=== PATIENT | male | born 1965 | race Caucasian/White ===

== ENCOUNTER 2022-09-01 12:30 | Outpatient (CLI) | payer OTHER, SELFPAY ==
--- NOTE | 2022-09-01 13:00 | CRLHL7_ITS ---
For Patients: As a result of the Century Cures Act, medical imaging exams and procedure reports are released immediately into your electronic medical record. You may view this report before your referring provider. If you have questions, please contact your health care provider. INDICATION: Follow-up DVT COMPARISON: 12/20/2021 TECHNIQUE: A compression venous ultrasound exam was performed of the left lower extremity using triana-scale imaging, color Doppler and spectral Doppler analysis. FINDINGS: There has been mild improvement in the extensive DVT within the left lower extremity, however, there remains extensive thrombus within the deep femoral and femoral veins within the left thigh. The popliteal and posterior tibial veins are compressible. Partial compressibility of the proximal greater saphenous vein and common femoral vein noted. However, there is lack of augmentation within the left calf. Normal appearance of the right common femoral vein. IMPRESSION: Mild improvement in the extensive DVT within the left lower extremity. However, extensive noncompressible and partially compressible clot remains. Dictated by Matt Lewis MD @ 09/01/2022 2:50:55 PM (Electronically Signed)
== END 2022-09-01 12:31 | disposition home or self-care (01) ==
LOC: US 12:31
PROVIDERS: PCP Family Medicine; Visit Provider Internal Medicine Hematology & Oncology
DX: I82.402 Acute embolism and thrombosis of unspecified deep veins of left lower extremity (principal)
CPT/HCPCS: 93971

== ENCOUNTER 2022-09-03 12:45 | Outpatient (RCR) | payer OTHER, SELFPAY ==
[2022-09-03 13:47] LABS: D Dimer Quantitative* 0.32 ug/ml (0.00-0.50)
== END 2022-11-30 23:59 | disposition home or self-care (01) ==
LOC: CCIC 12:45
PROVIDERS: PCP Family Medicine; Visit Provider Internal Medicine Hematology & Oncology
DX: I82.402 Acute embolism and thrombosis of unspecified deep veins of left lower extremity (principal); Z79.01 Long term (current) use of anticoagulants
CPT/HCPCS: 36415; 85379; 87635; 99202; 99204; 99205; 99212; 99213; 99214

== ENCOUNTER 2023-02-23 13:38 | Outpatient (CLI) | payer OTHER, SELFPAY ==
--- NOTE | 2023-02-23 14:00 | CRLHL7_ITS ---
For Patients: As a result of the Century Cures Act, medical imaging exams and procedure reports are released immediately into your electronic medical record. You may view this report before your referring provider. If you have questions, please contact your health care provider. INDICATION: FOLLOW UP CHRONIC LT LE THROMBUS. PT ON Eliquis COMPARISON: 09/01/2022 TECHNIQUE: A compression venous ultrasound exam was performed of the left lower extremity using triana-scale imaging, color Doppler and spectral Doppler analysis. FINDINGS: Extensive noncompressible hypoechoic clot is present throughout the left common femoral vein, femoral vein, proximal deep femoral vein and visualized greater saphenous vein. Clot extends to the mid femoral vein. The distal femoral vein and popliteal vein are patent. The right common femoral vein is also patent. Color blood flow within the left peroneal veins. IMPRESSION: Extensive DVT within the left lower extremity is mostly similar although there is some decreased clot within the distal femoral vein compared to the prior study. Dictated by Matt Lewis MD @ 02/23/2023 3:56:42 PM (Electronically Signed)
== END 2023-02-23 13:39 | disposition home or self-care (01) ==
LOC: US 13:40
PROVIDERS: PCP Family Medicine; Visit Provider Internal Medicine Hematology & Oncology
DX: I82.402 Acute embolism and thrombosis of unspecified deep veins of left lower extremity (principal)
CPT/HCPCS: 93971

== ENCOUNTER 2023-03-03 13:52 | Outpatient (RCR) | payer OTHER, SELFPAY ==
[2023-03-03 16:07] LABS: D Dimer Quantitative* < 0.27 ug/ml (0.00-0.50)
== END 2023-08-30 23:59 | disposition home or self-care (01) ==
LOC: CCIC 13:52
PROVIDERS: PCP Family Medicine; Visit Provider Internal Medicine Hematology & Oncology
DX: I82.402 Acute embolism and thrombosis of unspecified deep veins of left lower extremity (principal); Z79.01 Long term (current) use of anticoagulants
CPT/HCPCS: 36415; 85379; 99212; 99213; 99214

== ENCOUNTER 2025-01-08 02:01 | Emergency (ER) | payer OTHER, SELFPAY ==
[2025-01-08 02:04] VITALS: BP 120/77; PULSE 67; RESP 16; TEMP 36.4; O2SAT 97; BMI 26.6
--- OUTSIDE RECORDS SUMMARY | 2025-01-08 02:04 | XMS_ITS | Clinical Summary ---
Author Organization [facility] Address [address] [place] [id number] Care Team Providers Care Patient Safety Manager Name Role Phone Dominguez Reyes MD Primary Care Provider [phone] Neema Lopes INSTALLATION AND REPAIR TECHNICIAN Unavailable [phone] Allergies Active Allergy Reactions Criticality Noted Date Comments Pollen Extracts Other - Describe In Comment Field 08/07/2021 Runny nose, water eyes, coughing Medications naproxen (ALEVE) 220 mg tabletIndication s:Myalgia Take 2 tablets by mouth every 12 hours if needed (myalgias). 100 tablet 07/03/20 20 Active sildenafil citrate (VIAGRA) 50 mg tabletIndication s:ED (erectile dysfunction) of non-organic origin Take 1 tablet by mouth once daily if needed for Erectile Dysfunction. Take 30min to 4 hours before sexual activity. Max 100mg/24hr 30 tablet. 3 08/25/20 20 Active albuterol 2.5 mg/0.5 mL CONCENTRATED NEB solutionIndicati ons:Moderate persistent asthma without complication (HC) Inhale 0.5 mL (2.5 mg) via a nebulizer every 6 hours if needed for Shortness Of Breath. 15 mL 5 05/16/20 22 Active albuterol HFA (PRO-AIR; VENTOLIN; PROVENTIL) 90 mcg/actuation inhalerIndicatio ns:Moderate persistent asthma without complication (HC) Inhale 2 Puffs by mouth every 6 hours if needed for Shortness of Breath 1st choice or Wheezing 2nd choice. 1 Each 5 05/16/20 22 Active benzonatate (TESSALON) 200 mg capsuleIndicatio ns:Cough, unspecified type TAKE ONE CAPSULE BY MOUTH THREE TIMES DAILY NEEDED FOR COUGH 30 Capsule 3 12/29/19 24 Active olopatadine (PATANOL) 0.1 % ophthalmic solutionIndicati ons:Seasonal allergies Place 1 Drop into both eyes two times daily. 20 mL 2 01/27/20 24 Active finasteride (PROPECIA) 1 mg tablet Take 1 mg by mouth once daily in the morning. 11/04/19 24 Active CPAPIndications: Severe obstructive sleep apnea,Non-restor ative sleep,Excessive daytime sleepiness CPAP (E0601) machine for home use at pressure: 7-18 , Choice of mask (A7030 or A7034) w/full face cushion (A7031) x1/mo, nasal cushion (A7032) x2/mo, or nasal pillows (A7033) x 2/mo; Length of Need: 99 months; Frequency of use: Daily 1 Each 11 05/26/20 24 Active prazosin (MINIPRESS) 2 mg capsuleIndicatio ns:PTSD (post-traumatic stress disorder) Take 2 Capsules (4 mg) by mouth at bedtime. 90 Capsule 3 10/28/19 25 Active daridorexant (Quviviq) 25 mg tab Take by mouth. Takes 25 mg at bedtime. PRESCRIBED BY [facility] 12/14/19 25 Active fluvoxaMINE 25 mg tabletIndication s:Social anxiety disorder,Obsessi ve-compulsive disorder, unspecified type May take 12.5-37.5 mg daily. 45 Tablet 1 12/14/19 25 Active LORazepam (Ativan) 0.5 mg tabIndications:S ocial anxiety disorder Take 0.5-1 Tablets (0.25-0.5 mg) by mouth once daily if needed for Anxiety. For social functions. Do not consume alcohol when using. 5 Tablet 12/14/19 25 Active atomoxetine 10 mg capsuleIndicatio ns:Attention deficit hyperactivity disorder (ADHD), predominantly inattentive type TAKE 1 CAPSULE BY MOUTH ONCE DAILY. 30 Capsule 12/27/19 25 Active ARIPiprazole (Abilify) 2 mg tabletIndication s:Major depressive disorder, recurrent episode, in partial remission with seasonal pattern Take 0.5-1 Tablets (1-2 mg) by mouth once daily. Patient needs range dose. 90 Tablet 08/09/20 24 2024 Discontinued(* Patient states no longer taking) LORazepam (Ativan) 0.5 mg tabIndications:S ocial anxiety disorder Take 0.5-1 Tablets (0.25-0.5 mg) by mouth once daily if needed for Anxiety. For social functions. Do not consume alcohol when using. 5 Tablet 10/04/19 25 2024 Discontinued(R eorder (E-cancel not sent)) eszopiclone (LUNESTA) 3 mg tabletIndication s:Insomnia, unspecified type Take 0.5 Tablets (1.5 mg) by mouth at bedtime. 30 Tablet 2 10/28/19 25 2024 Discontinued(* Med complete/Regim en complete/Level of care change) atomoxetine (STRATTERA) 10 mg capsuleIndicatio ns:Attention deficit hyperactivity disorder (ADHD), predominantly inattentive type Take 1 Capsule (10 mg) by mouth once daily. 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 This is clinically relevant per radiology in that it makes it difficult to do an angiogram from the leg. Small bowel obstruction 12/29/2021 DVT of deep femoral vein, left 12/13/2021 H/O small bowel obstruction 05/09/2021 Overview (05/09/2021): Hospitalized overnight, managed conservatively History of small bowel obstruction 07/03/2020 Overview (07/03/2020): Hospitalized at [facility], unknown etiology OCD (obsessive compulsive disorder) 07/03/2020 Generalized anxiety disorder 07/03/2020 Moderate persistent asthma without complication 01/09/2020 Seasonal affective disorder Encounters Date Type Department Care Team Description 01/05/2025 10:45 AM CDT Nurse/Clinic Staff Only [facility] [address] [place] [address] Immunization/Injec tion (ALLERGY INJECTION ) 01/05/2025 Travel 12/28/2024 4:00 PM CDT Ancillary Procedure [facility] [address] [place] [address] 12/28/2024 2:25 PM CDT Office Visit [facility] [address] [place] [address] Dominguez Reyes MD Back Pain (lower back pain on both left and right just a bad pain patient states chronic for 3-4 months.); Eye Problem (has extra skin on eye lids hoping for removal refferal); Immunization/Injec tion 12/28/2024 Travel 12/25/[address] [facility] at [address] [place] [address] Jenny Mcgill NP Refill Request (Atomoxetine) 12/21/[address] [facility] [place] [address] Jenny Mcgill NP Refill Request (Atomoxetine 25mg) 12/13/2024 2:30 PM CDT Telemedicine [address] [place] [address] Jenny Mcgill NP Telehealth ([place]) 12/13/2024 11:15 AM CDT Telemedicine [facility] [address] [facility] [address] [place] [address] Vel Rodriguez, Eric, LP Mental Health Intake; Telehealth; Sleep Problem 12/13/2024 Travel 12/08/2024 12:45 PM CDT Nurse/Clinic Staff Only [facility] [address] [place] [address] Immunization/Injec tion (ALLERGY INJECTION ) 12/08/2024 Travel 11/28/[address] [facility] [address] [place] [address] Jenny Mcgill, INSTALLATION AND REPAIR TECHNICIAN Medication Management (Atomoxetine 10 mg) 11/21/2024 Refill [facility] at [address] [place] [phone] Jenny Mcgill, INSTALLATION AND REPAIR TECHNICIAN Refill Request (Atomoxetine 25MG) 11/10/2024 10:15 AM METAL BASE BLOCKER Nurse/Clinic Staff Only [facility] [address] [place] [address] Immunization/Injec tion (Allergy shot/) 11/10/2024 Travel 10/28/2024 11:15 AM METAL BASE BLOCKER Telemedicine [facility] [address] [place] [address] [address] [place] [address] Neema Lopes, MAIKEL Telehealth 10/28/2024 Travel 10/13/2024 10:15 AM METAL BASE BLOCKER Nurse/Clinic Staff Only [facility] [address] [place] [address] Immunization/Injec tion (ALLERGY INJECTION ) 10/13/2024 Travel from Last 3 Months Immunizations Immunization Administration Dates Next Due Anthrax Vaccine 08/25/2010 COVID-19 VACCINE SPIKEVAX (M ODERNA 50MCG/0.5ML) 12YO+ PFS 06/29/2023 COVID-19 vaccine ([employer]i [employer]-Bio NTech 30mcg/0.3mL) PF, MDV 07/22/2021,12/29/2020,12/08/2020 Hepatitis A (Adult) 06/18/2003,02/12/1999 Hepatitis B (Adult) 09/24/2010, 3,01/29/2003,2000 INFLUENZA, IIV3 PF (AGE >= 6 MO) 07/02/2024 Influenza Virus, Unspecified 07/03/2017,05/30/20 15 Influenza, IIV4 06/08/2023,05/16/2022,07/03/2017 Influenza, IIV4 (=>6mos) MDV 06/26/2020, 11/05/2019,07/05/2018,2015,05/09/2016 Oral Polio Vaccine 05/05/1989,02/26/1989 Pneumococcal Conj 20-valent (Prevnar 20) 07/22/2024 Smallpox (Vaccinia) Live [id number] 11/06/2002 Td (Age >=7 Years) 12/06/2021,01/29/2003, 001 Tdap 09/24/2010 Typhoid (injectable) 12/14/2015,09/24/2010 Typhoid Parenteral,Killed 12/14/2015,05/05/1989, 03/13/1989 Zoster (Shingrix-RZV, recombinant) 12/28/2024, Family History Medical History Relation Name Comments Asthma Brother Seasonal affective disorder Brother Asthma Father Good Health Mother Relation Name Status Comments Brother Alive Father Alive Mother Alive Social History Tobacco Use Types Packs/Day Years Used Date Smoking Tobacco: Never Smokeless Tobacco: Never Tobacco Cessation:Counseling Given: Yes Alcohol Use Standard Drinks/Week Comments Yes 2 (1 standard drink = 0.6 oz pur e alcohol) PHQ-2 Answer Date Recorded PHQ-2 TOTAL SCORE 2 12/13/2024 Social Connections Answer Date Recorded Do you often feel lonely or isolated from those around you? 0 12/28/2024 Alcohol Use Answer Date Recorded How often do you have a drink containing alcohol ? 2 10/16/2023 How many drinks containing a lcohol do you have on a typical day when you are drinking? 0 10/16/2023 How often do you have five or more drinks on one occasion? 0 10/16/2023 Financial Resource Strain Answer Date R ecorded Difficulty of Paying Living Expenses 3 12/28/2024 Difficulty of Paying Living Expenses Not on file 12/28/2024 Food Insecurity Answer Date Recorded Do you worry your food will run out before you are able to buy more? 1 12/28/2024 Transportation Needs Answer Date Record ed Does lack of transportation keep you from medica l appointments? 1 12/28/2024 Does lack of transportation keep you from work, meetings or getting things that you need? 1 12/28/2024 Housing Stability Answer Date Recorded What is your housing situation today? 1 12/28/2024 Utilities Answer Date Recorded Do you have trouble paying f or utilities (for example, heat, electricity, water, phone)? 1 12/28/2024 Sex and Gender Information Value Date Recorded Sex Assigned at Not on file Legal Sex Male 9:46 AM CDT Gender Identity Not on file Sexual Orientation Not on file Obstetrics History Last Filed Vital Signs Vital Sign Reading Time Taken Comments Blood Pressure 127/80 12/28/2024 2:25 PM CDT Pulse 55 12/28/2024 2:25 PM CDT Temperature 36.7 C (98 F) 07/22/2024 11:22 AM METAL BASE BLOCKER Respiratory Rate 14 05/27/2022 5:25 PM CDT Oxygen Saturation 98% 12/28/2024 2:25 PM CDT Inhaled Oxygen Concentration - - Weight 77.7 kg (171 lb 3.2 oz) 12/28/2024 2:25 P M CDT Height 170.2 cm (5' 7) 01/05/2024 8:20 AM CDT Body Mass Index 26.81 01/05/2024 8:20 AM CDT Plan of Treatment Upcoming Encounters Date Type Department Care Team (Latest Contact Info) Description 01/17/2025 11:00 AM CDT Appointment [facility] [address] [place] [address] Jarad Browne, PT [address] [place] [address] 01/30/2025 11:15 AM CDT Telemedicine [facility] [address] [address] Vel Rodriguez, Eric, LP [address] [address] 02/02/2025 10:45 AM CDT Nurse/Clinic Staff [place] [address] [place] [address] 02/07/2025 11:15 AM CDT Telemedicine [facility] [address] [address] Vel Rodriguez PsyD, LP [address] [facility] [address] [place] [address] 02/14/2025 11:15 AM CDT Telemedicine [facility] [address] [facility] [address] [place] [address] Vel Rodriguez PsyD, LP [address] [facility] [address] [place] [address] 02/21/2025 10:30 AM CDT Telemedicine [facility] [address] [place] [address] Vel Rodriguez PsyD, LP [address] [place] [address] 04/03/2025 9:00 AM CDT Office Visit [facility] [address] [place] [address] Jono Phan MD [address] [place] [address] Health Maintenance Due Date Last Done Comments HIV for age 15-65 02/01/1980 Hepatitis C screening for ag e 18-79 1983 BMI (ht and wt on same day) for age 18+ 01/04/2025 01/05/2024, 05/16/2022, 01/06/2022, Additional history exists Depression screening for age 12+ 12/13/2025 12/13/2024, 12/13/2024, 10/04/2024, Additional history exists Colonoscopy through age 75 01/09/2027 01/09/2017 Lipids for age 45-75 07/22/2029 07/22/2024, 07/13/2023, 05/16/2022 Tetanus booster 12/07/2031 12/06/2021, 09/14, 01/29/2003, Additional history exists Tdap Completed 09/24/2010 COVID-19 vaccine series Completed 07/02/20 24, 06/29/2023, 07/04/2022, Additional history exists Influenza Vaccine Completed 07/02/2024, , 05/16/2022, Additional history exists Pneumococcal series for age 50+ Completed 4 Zoster (shingles) series for age 50+ Completed 12/28/2024, 07/02/2024 Medical Devices Implanted Type Area Drink Mixer Device Identifier Shelf Expiration Date Model / Serial / Lot Mesh Ventral 1.7in Ventralex St W/Strap - [id number] Implanted:Qty: 1 on 02/24/2018 by Jose Solorzano MD at [facility] N/A: Abdomen [employer] 01/10/2020 [id number] / / [id number] Procedures Procedure Name Priority Date/Time Associated Diagnosis Comments XR SPINE LUMBAR 3 VIEWS Routine 12/28/2024 3:58 PM CDT Low back pain at multiple sites LIPID PANEL W REFLEX MEASURED LDL Routine 07/22/2024 12:33 PM METAL BASE BLOCKER Prediabetes COLONOSCOPY 01/09/2017 10:19 AM CDT from Last 3 Months or Most Recently Relevant to Health Maintenance Results * XR SPINE LUMBAR 3 VIEWS (12/28/2024 3:58 PM CDT) Anatomical Region Laterality Modality LUMBAR SPINE Computed Radiogr aphy 12/30/2024 1:54 PM CDT Impressions 12/30/2024 1:54 PM CDT No acute findings. Stable spondylolisthesis and disc space narrowing at L5-S1. Dictated by Faye Cardenas MD @ 12/30/2024 1:54:15 PM (Electronically Signed) Narrative 12/30/2024 1:54 PM CDT For Patients: As a result of the Century Cures Act, medical imaging exams and procedure reports are released immediately into your electronic medical record. You may view this report before your referring provider. If you have questions, please contact your health care provider. INDICATION: Low back pain at multiple sites TECHNIQUE: Lumbar spine 3 view. COMPARISON: CT abdomen pelvis 12/31/2021 FINDINGS: Bones: 5 lumbar-type vertebral bodies. Vertebral body heights are maintained. Grade 1 anterolisthesis of L5 on S1 measuring 7 mm, relatively unchanged compared to prior CT given differences in technique. No fractures or significant bone lesions. Joints: Disc space narrowing at L5-S1. Small anterior osteophytes predominantly L1-L3. Soft tissues: Unremarkable. Procedure Note Faye Cardenas MD - 12/30/2024 For Patients: As a result of the Cures Act, medical imagingexams and procedure reports are released immediately into your electronicmedical record. You may view this report before your referring provider.If you have questions, please contact your health care provider. INDICATION: Low back pain at multiple sites TECHNIQUE: Lumbar spine 3 view. COMPARISON: CT abdomen pelvis 12/31/2021 FINDINGS: Bones: 5 lumbar-type vertebral bodies. Vertebral body heights aremaintained. Grade 1 anterolisthesis of L5 on S1 measuring 7 mm, relativelyunchanged compared to prior CT given differences in technique. Nofractures or significant bone lesions. Joints: Disc space narrowing at L5-S1. Small anterior osteophytespredominantly L1-L3. Soft tissues: Unremarkable. IMPRESSION: No acute findings. Stable spondylolisthesis and disc space narrowing at L5-S1. Dictated by Faye Cardenas MD @ 12/30/2024 1:54:15 PM (Electronically Signed) us Dominguez Reyes MD GENERAL IMAGING Final Resu lt * (ABNORMAL) LIPID PANEL W REFLEX MEASURED LDL (07/22/2024 12:33 PM METAL BASE BLOCKER) CHOLESTEROL, TOTAL 211(H) <200 mg/dL [facility] HDL CHOLESTEROL 48 > OR = 40 mg/dL [facility] TRIGLYCERIDES 209(H) <150 mg/dL [facility] Comment: If a non-fasting specimen was collected, consider repeat triglyceride testing on a fasting specimen if clinically indicated. Luisa et al. J. of Clin. Lipidol. 2015;9:129-169. LDL-CHOLESTEROL 128(H) mg/dL (calc) [facility] Comment: Reference range: <100 Desirable range <100 mg/dL for primary prevention; <70 mg/dL for patients with CHD or diabetic patients with > or = 2 CHD risk factors. LDL-C is now calculated using the Zeb-Baron calculation, which is a validated novel method providing better accuracy than the Friedewald equation in the estimation of LDL-C. Zeb SS et al. АЛЕКСАНДР. 2013;310(19): 2111-5230 (http://education.Tissuetech/faq/SMD309) CHOL/HDLC RATIO 4.4 <5.0 (calc) [facility] NON HDL CHOLESTEROL 163(H) <130 mg/dL (calc) [facility] Comment: For patients with diabetes plus 1 major ASCVD risk factor, treating to a non-HDL-C goal of <100 mg/dL (LDL-C of <70 mg/dL) is considered a therapeutic option. Blood BLOOD SPECIMEN / Unknown 07/22/2024 12:33 PM METAL BASE BLOCKER 07/22/2024 12:34 PM METAL BASE BLOCKER Dominguez Reyes MD CHEMISTRY Final Resu lt Curves [facility] [address] [place] [address], Social [employer] [facility] [address] [place] [phone] * COLONOSCOPY (01/09/2017 10:19 AM CDT) 01/09/2017 10:1 9 AM CDT Narrative Transcriptions RashadJose whitfeild - 01/09/2017 11:23 AM CDT Patient Name: Baltazar Montaño Procedure Date: 01/09/2017 Gender: Male Date of : 1965 Admit Type: Ambulatory Procedure: Colonoscopy Proceduralist: Lynn Bauman (Nurse) Indications/Pre-Op Diagnosis: Screening for colorectal malignant neoplasm, This is the patient's first colonoscopy Medications: The level of sedation administered was moderate, Midazolam 6 mg IV, Fentanyl 125 micrograms IV Procedure Description: The patient had risks, benefits and alternatives explained to andgave informed consent. The patient had a stable cardiopulmonary status and judged an adequate candidate for conscious sedation. The colonoscope was passed through the anus and advanced to thececum, identified by appendiceal orifice and ileocecal valve. Thecolonoscopy was somewhat difficult due to significant looping. Successfulcompletion of the procedure was aided by increasing the dose of sedationmedication and applying abdominal pressure. The patient tolerated the procedure fairly well. The quality of the bowel preparation was excellent. Complications: No immediate complications. Estimated blood loss: Minimal. Estimated Blood Loss & Specimen: Estimated blood loss was minimal. Specimen collected - Yes and sent to Laboratory Findings: The perianal and digital rectal examinations were normal. A 1 mm polyp was found in the sigmoid colon. The polyp was sessile.The polyp was removed with a cold biopsy forceps. Resection and retrieval were complete. The exam was otherwise without abnormality. Impressions/Post-Op Diagnosis: - One 1 mm polyp in the sigmoid colon, removed with a cold biopsy forceps. Resected and retrieved. - The examination was otherwise normal. Recommendation: - Await pathology results. Moderate Sedation: Moderate (conscious) sedation was administered by the endoscopy nurse and supervised by the endoscopist. The following parameters were monitored: oxygen saturation, heart rate, blood pressure, andresponse to care. Jose Solorzano, 01/09/2017 11:22:49 AM This report has been signed electronically. Note Initiated On: 01/09/2017 10:19 AM Jose Solorzano MD PROCEDURE ORD Final Re sult from Last 3 Months or Most Recently Relevant to Health Maintenance Insurance [facility] Advance Directives * Full Code (Latest Code Status on File) Date Activated Date Inactivated Comments 12/28/2021 1:58 PM 12/29/2021 3:26 PM Question Answer Comments Code Status Discussion: Reviewed Preferences * Full Code Date Activated Date Inactivated Comments 02/24/2018 8:54 AM 02/24/2018 4:37 PM * Full Code Date Activated Date Inactivated Comments 01/09/2017 10:32 AM 01/10/2017 2:29 AM Care Teams Patient Safety Manager Relationship Specialty Start Date End Date Dominguez Reyes MD [address] [place] [address] PCP - General Family Practice 08/05/23 Neema Lopes NP [address] [place] [address] Sleep Medicine 05/20/24
--- OUTSIDE RECORDS SUMMARY | 2025-01-08 02:04 | XMS_ITS | Clinical Summary ---
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 Name Role Phone [facility] Unavailable Unava ilable Conditions or Problems Problem Name Problem Code Onset Date Status Entry Date Provider Comment Standard Description Annotate Insomnia 531525720 (SNOMED CT) 11/11 Active 11/17 Yuliya Thursday Insomnia PTSD 56519325 (SNOMED CT) 11/11 Active 11/17 Yuliya Thursday Posttraumatic stress disorder Depression with anxiety 164211187 (SNOMED CT) 11/11 Active 11/17 Yuliya Thursday Mixed anxiety and depressive disorder Obstructive sleep apnea, severe 34478035 (SNOMED CT) 11/11 Active 11/11 Yuliya Thursday Obstructive sleep apnea syndrome Small bowel obstruction 103028265 (SNOMED CT) 12/29 Active 11/09 Liza Rich Small bowel obstruction Imported from [facility]: [facility] [employer] [facility] ( at 11:29:32 AM) Seasonal affective disorder 055908044 (SNOMED CT) 01/08 Active 11/09 Liza Rich Seasonal affective disorder Imported from [facility]: [facility] [employer] [facility] ( at 11:29:32 AM) OCD (obsessive compulsive disorder) F42.9 (ICD-10-CM ) Active 11/09 Liza Rich Obsessive-comp ulsive disorder, unspecified Imported from [facility]: [facility] [employer] [facility] (26-Feb-202 5 at 11:29:32 AM) Moderate persistent asthma without complication J45.40 (ICD-10-CM ) 01/08 Active 11/09 Liza Rich Moderate persistent asthma, uncomplicated Imported from [facility]: [facility] Medication Review [facility] ( 5 at 11:29:32 AM) 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 Active 11/09 Liza Rich Other congenital malformations of great veins Imported from [facility]: [facility] Medication Review [facility] ( at 11:29:32 AM) History of small bowel obstruction Z87.19 (ICD-10-CM ) Active 11/09 Liza Rich Personal history of other diseases of the digestive system Imported from A: [facility] ( at 11:29:32 AM) H/O small bowel obstruction Z87.19 (ICD-10-CM ) 05/09 Active 11/09 Liza Rich Personal history of other diseases of the digestive system Imported from [facility]: [facility] Medication Review [facility] ( at 11:29:32 AM) Generalized anxiety disorder 02266580 (SNOMED CT) Active 11/09 Liza Rich Generalized anxiety disorder Imported from [facility]: [facility] ( at 11:29:32 AM) DVT of deep femoral vein, left I82.412 (ICD-10-CM ) 01/06 Active 11/09 Liza Rich Acute embolism and thrombosis of left femoral vein Imported from [facility]: [facility] Medication Review [facility] ( at 11:29:32 AM) Medications Medication Instructions Start Date Stop Date Generic Name ND Provider QUVIVIQ 25 MG TABS take 1 tab within 30 minutes of bed for insomnia daridorexant [id number] Yuliya Thursday SILDENAFIL CITRATE 50 MG TABS Take 1 tablet by mouth once daily if needed for Erectile Dysfunction. Take 30min to 4 hours before sexual activity. Max 100mg/24hr sildenafil [id number] QIEUSER QIEUSER PRAZOSIN HCL 2 MG CAPS Take 2 Capsules (4 mg) by mouth at bedtime. prazosin [id number] QIEUSER QIEUSER OLOPATADINE HCL 0.1 % SOLN Place 1 Drop into both eyes two times daily. olopatadine 23182146877 QIEUSER QIEUSER NAPROXEN SODIUM 220 MG TABS Take 2 tablets by mouth every 12 hours if needed (myalgias). naproxen sodium 25261216636 QIEUSER QIEUSER LORAZEPAM 0.5 MG TABS Take 0.5-1 Tablets (0.25-0.5 mg) by mouth once daily if needed for Anxiety. For social functions. Do not consume alcohol when using. lorazepam 59519486837 QIEUSER QIEUSER FINASTERIDE 1 MG TABS Take 1 mg by mouth once daily in the morning. finasteride 62071816678 QIEUSER QIEUSER ESZOPICLONE 3 MG TABS Take 0.5 Tablets (1.5 mg) by mouth at bedtime. eszopiclone 72474998078 QIEUSER QIEUSER CPAP CPAP (E0601) machine for home use at pressure: 7-18 , Choice of mask (A7030 or A7034) w/full face cushion (A7031) x1/mo, nasal cushion (A7032) x2/mo, or nasal pillows (A7033) x 2/mo; Length of Need: 99 months; Frequency of use: Daily CPAP QIEUSER QIEUSER BENZONATATE 200 MG CAPS TAKE ONE CAPSULE BY MOUTH THREE TIMES DAILY NEEDED FOR COUGH benzonatate 75737529896 QIEUSER QIEUSER ATOMOXETINE HCL 25 MG CAPS Take 1 Capsule (25 mg) by mouth once daily. atomoxetine 79054988655 QIEUSER QIEUSER ARIPIPRAZOLE 2 MG TABS Take 0.5-1 Tablets (1-2 mg) by mouth once daily. Patient needs range dose. aripiprazole 33821934336 QIEUSER QIEUSER ALBUTEROL SULFATE HFA 108 (90 Base) MCG/ACT AERS Inhale 2 Puffs by mouth every 6 hours if needed for Shortness of Breath 1st choice or Wheezing 2nd choice. albuterol sulfate 82703529296 QIEUSER QIEUSER ALBUTEROL SULFATE (5 MG/ML) 0.5% NEBU Inhale 0.5 mL (2.5 mg) via a nebulizer every 6 hours if needed for Shortness Of Breath. albuterol sulfate 31225604504 QIEUSER QIEUSER Medications Administered No information available. Allergies, Adverse Reactions, Alerts Allergy Name Reaction Description Start Date Severity Statu s Provider POLLEN EXTRACTS Other - Describe In Comment Field Mild Active Liza Dawsonmike Results Date Name Value Unit Range Flag Description Office Visit: Office Visit Zachary oconnell in [place] [facility] MEDS REVIEW Done Documenta tion of current medications (procedure) Plan of Care Type Date Detail Pending order Sleep DME - PAP order Pending order Sleep DME - PAP order Procedures Code Procedure Name Date Entry Date [facility]-[id number] Documentation of current medicatio ns Vital Signs No information available. Immunizations No information available. Advance Directives No information available.
--- OUTSIDE RECORDS SUMMARY | 2025-01-08 02:04 | XMS_ITS | Continuity of Care Document ---
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 It does not include entries that were removed or entered in error. Problem Status Onset Date Problem Type Date of Resolution Comments Source visit for: administrative purpose Inactive Condition [facility] assessment of patient condition work status Active Condition [facility] astigmatism Active Condition [facility] refractive error - hypermetropia Active Condition [facility] presbyopia Active Condition [facility] visit for: routine eye exam Inactive Condition [facility] cough Active Condition [facility] Patient Education Inactive Condition [facility] visit for: screening exam Inactive Condition [facility] visit: ears/hearing exam for hearing conservation, treatment Inactive Condition [facility] visit for: screening exam pulmonary tuberculosis Inactive Condition [facility] visit for: investigation / testing Inactive Condition [facility] vertigo Inactive Condition Do[facility] diarrhea Active Condition [facility] multiple environmental allergies Inactive Condition [facility] bronchitis Inactive Condition [facility] visit for: services physical Active Condition [facility] Medications Combined list of outpatient medications from Department of Defense and Veterans Affairs facilities.Medications provided include 1) outpatient medications from the last 15 months, and 2) patient-reported medications. Medication Details Route Status Patient Instructions Prescription Expires Prescription Number Last Dispense Date Ordering Provider Order Date Order Qty Source ARIPIPRAZOL E (aripiprazo le), 2 MG, TABLET, ORAL, XLCARE PHARMACE, 500 ea. BOTTLE Active [id number] 2023 45 Pharmac y Data Transac tion Service Facilit y BENZONATATE (benzonatat e), 200 MG, CAPSULE, ORAL, CAMBER PHARMACE, 100 ea. BOTTLE Active [id number] 4 2023 30 Pharmac y Data Transac tion Service Facilit y BENZONATATE (benzonatat e), 200 MG, CAPSULE, ORAL, CAMBER PHARMACE, 100 ea. BOTTLE Active [id number] 2023 21 Pharmac y Data Transac tion Service Facilit y CLOBETASOL PROPIONATE (clobetasol propionate) , 0.05 %, CREAM (G), TOPICAL, ENCUBE ETHICALS, 15 g TUBE Active [id number] 2023 60 Pharmac y Data Transac tion Service Facilit y DOXYCYCLINE MONOHYDRATE (DOXYCYCLIN E MONOHYDRATE ), 100 MG, CAPSULE, ORAL, LUPIN PHARMACEU, 50 ea. BOTTLE Active [id number] 2023 14 Pharmac y Data Transac tion Service Facilit y FLUVOXAMINE MALEATE (FLUVOXAMIN E MALEATE), 25 MG, TABLET, ORAL, ANI PHARMACEUTI , 100 ea. BOTTLE Active [id number] 2023 180 Pharmac y Data Transac tion Service Facilit y GABAPENTIN (GABAPENTIN ), 250 MG/5ML, SOLUTION, ORAL, ACELLA PHARMACE, 470 ml BOTTLE Active [id number] 2023 100 Pharmac y Data Transac tion Service Facilit y LORAZEPAM (lorazepam) , 0.5 MG, TABLET, ORAL, LEADING PHARMA, 100 ea. BOTTLE Cancele d [id number] : 2023 0 Pharmac y Data Transac tion Service Facilit y LORAZEPAM (lorazepam) , 0.5 MG, TABLET, ORAL, LEADING PHARMA, 100 ea. BOTTLE Cancele d [id number] : 2023 0 Pharmac y Data Transac tion Service Facilit y LORAZEPAM (lorazepam) , 0.5 MG, TABLET, ORAL, LEADING PHARMA, 100 ea. BOTTLE Active [id number] 2023 5 Pharmac y Data Transac tion Service Facilit y LORAZEPAM (lorazepam) , 0.5 MG, TABLET, ORAL, LEADING PHARMA, 100 ea. BOTTLE Active [id number] 2023 5 Pharmac y Data Transac tion Service Facilit y MODAFINIL (MODAFINIL) , 100 MG, TABLET, ORAL, APOTEX MANASA, 30 ea. BOTTLE Active [id number] 2023 135 Pharmac y Data Transac tion Service Facilit y MODAFINIL (MODAFINIL) , 100 MG, TABLET, ORAL, APOTEX MANASA, 30 ea. BOTTLE Active [id number] 2023 135 Pharmac y Data Transac tion Service Facilit y PANTOPRAZOL E SODIUM (PANTOPRAZO LE SODIUM), 20 MG, TABLET DR, ORAL, CAMBER PHARMACE, 90 ea. BOTTLE Active [id number] 2023 90 Pharmac y Data Transac tion Service Facilit y PANTOPRAZOL E SODIUM (PANTOPRAZO LE SODIUM), 20 MG, TABLET DR, ORAL, CAMB PHARMACE, 90 ea. BOTTLE Active [id number] 2023 90 Pharmac y Data Transac tion Service Facilit y Allergies, Adverse Reactions, Alerts Combined list of allergies from Department of Defense and Veterans Affairs facilities. It does not include entries that were removed or entered in error. Substance Category Reaction Severity Reaction type Status Date Reported Comments Source No Known Allergies Drug allergy (disorder) active 09/24/2010 Michelle Guzmanning [place] Immunizations Combined list of available immunizations from the Department of Defense and Veterans Affairs facilities. Immunization Series Date Given Administered By Site Reaction Lot Number CVX Code Drug Rn Sexual Assault Status Comments Source influenza, injectable, quadrivalent 2019 IZABELLA, () Not Given influenza , injectabl e, quadrival ent DoD influenza, injectable, quadrivalent 2019 IZABELLA, () Not Given influenza , injectabl e, quadrival ent DoD influenza, injectable, quadrivalent 2015 REJI LEWIS () Not Given influenza , injectabl e, quadrival ent DoD Influenza, seasonal, injectable, preservative free 1 2011 [id number] [employer] (CSL) complet ed Influenza , seasonal, injectabl e, preservat nicole free DoD Influenza, seasonal, injectable, preservative free 1 2010 [id number] 140 [employer] (CSL) complet ed Influenza , seasonal, injectabl e, preservat nicole free DoD hepatitis B vaccine, adult dosage 4 2010 [id number] 43 Sanofi Pasteur ([facility]) complet ed hepatitis B vaccine, adult dosage DoD typhoid Vi capsular polysaccharid e vaccine 1 2010 [id number] Sanofi Pasteur ([facility]) complet ed typhoid Vi capsular polysacch aride vaccine DoD tetanus toxoid, reduced diphtheria toxoid, and acellular pertu is vaccine, adsorbed 1 2010 [id number] Sanofi Pasteur ([facility]) complet ed tetanus toxoid, reduced diphtheri a toxoid, and acellular pertussis vaccine, adsorbed DoD influenza virus vaccine, split virus (incl. purified surface antigen)-reti red CODE 1 2009 [id number] [employer] (CS) complet ed influenza virus vaccine, split virus (incl. purified surface antigen)- retired CODE DoD anthrax vaccine 1 2009 [id number] Other (OTH) complet ed anthrax vaccine DoD influenza virus vaccine, split virus (incl. purified surface antigen)-reti red CODE 1 2006 [id number] 15 Sanofi Pasteur ([facility]) complet ed influenza virus vaccine, split virus (incl. purified surface antigen)- retired CODE DoD influenza virus vaccine, split virus (incl. purified surface antigen)-reti red CODE 1 2004 UNK 15 Unknown (UNK) comple t ed influenza virus vaccine, split virus (incl. purified surface antigen)- retired CODE DoD measles, mumps and rubella virus vaccine 1 2002 UNK 03 Unknown (UNK) comple t ed measles, mumps and rubella virus vaccine DoD hepatitis B vaccine, adult dosage 3 2002 UNK 43 Unknown (UNK) comple t ed hepatitis B vaccine, adult dosage DoD hepatitis A vaccine, adult dosage 2 2002 UNK 52 Unknown (UNK) comple t ed hepatitis A vaccine, adult dosage DoD tetanus and diphtheria toxoids, adsorbed, preservative free, for adult use (2 Lf of tetanus toxoid and 2 Lf of diphtheria toxoid) 1 2002 UNK 09 Unknown (UNK) comple t ed tetanus and diphtheri a toxoids, adsorbed, preservat nicole free, for adult use (2 Lf of tetanus toxoid and 2 Lf of diphtheri a toxoid) DoD hepatitis B vaccine, adult dosage 2 2002 UNK 43 Unknown (UNK) comple t ed hepatitis B vaccine, adult dosage DoD vaccinia (smallpox) vaccine 0 2002 [id number] Ally (NANCY) complet ed vaccinia (smallpox ) vaccine DoD tetanus and diphtheria toxoids, adsorbed, preservative free, for adult use (2 Lf of tetanus toxoid and 2 Lf of diphtheria toxoid) 0 2000 UNK 09 Unknown (UNK) comple t ed tetanus and diphtheri a toxoids, adsorbed, preservat nicole free, for adult use (2 Lf of tetanus toxoid and 2 Lf of diphtheri a toxoid) DoD hepatitis B vaccine, adult dosage 1 2000 UNK 43 Unknown (UNK) comple t ed hepatitis B vaccine, adult dosage DoD hepatitis A vaccine, adult dosage 1 1998 UNK 52 Unknown (UNK) comple t ed hepatitis A vaccine, adult dosage DoD measles, mumps and rubella virus vaccine 0 1993 UNK 03 Unknown (UNK) comple t ed measles, mumps and rubella virus vaccine DoD trivalent poliovirus vaccine, live, oral 0 1988 UNK 02 Unknown (UNK) comple t ed trivalent polioviru s vaccine, live, oral DoD typhoid vaccine, parenteral, other than acetone-kille d, dried 1 1988 UNK 41 Unknown (UNK) comple t ed typhoid vaccine, parentera l, other than acetone-k illed, dried DoD typhoid vaccine, parenteral, other than acetone-kille d, dried 1 1988 UNK 41 Unknown (UNK) comple t ed typhoid vaccine, parentera l, other than acetone-k illed, dried DoD trivalent poliovirus vaccine, live, oral 0 1988 UNK 02 Unknown (UNK) comple t ed trivalent polioviru s vaccine, live, oral DoD Encounters Combined list of: 1) Encounters from Department of Veterans Affairs facilities going backup to the last 18 months, not all VA inpatient encounters are included; 2) Encounters from the Department of Defense facilities going backup to 280 months. Location Location Details Encounter Type Encounter Number Reason For Visit Attending Provider ADM Date DC Date Status Disposition Source [place] OUTPATIENT [id number] KARLIESIA Rodarte 09/24 Released w/o Limitations [place]le [place]IENT [id number] DAWNA DONOVAN 09/24 Released w/o Limitations [place] [id number] 10/07 Released w/o Limitations [facility] OUT[facility] [id number] 12/13 Released w/o Limitations [facility] OUTPAT[facility] [id number] 12/13 Released w/o Limitations [facility] OUT[facility] [id number] 12/16 Released w/o Limitations [facility] OUTPATIENT [id number] 12/16 Released w/o Limitations [facility] OUTPATIENT [id number] 12/17 Released w/o Limitations [facility] [place]([facility]) OUTPATIENT [id number] [facility] GISELL GERMAN 12/30 Released w/o Limitations [place]man [place](Read [facility]ess [facility]) [place] OUTPATIENT [id number] post develop ment hearing exam ARACELIS RODRIGUEZ Ralph 12/30 Released w/o Limitations [place]man [place]([facility] ) [facility] OUTPATIENT [id number] Notes Entered by: EMANUEL ESQUIVEL 11 Apr 2013 1327 ------- ------- ------- ------- -- WTR JONE KAUFFMAN 04/11 Released w/o Limitations [facility]) TELE CONSULT [id number] Notes Entered by: SONJA RUELAS 20 Apr 2013 0943 ------- ------- ------- ------- -- PCM Ms Passer: patient seen at local urgent care on 04/09/13 for cough SONJA RUELAS. 04/20 [facility]) [facility]) OUTPATIENT [id number] PAULINE Hanks 05/10 Released w/o Limitations [facility]) [facility] OUTPATIENT [id number] Notes Entered by: BRY SWEET 30 May 2013 1143 ------- ------- ------- ------- -- picking up glasses BRY SWEET 05/30 Released w/o Limitations [facility]) Procedures Combined list of: 1) Procedures from Department of Veterans Affairs facilities going back up to thelast 18 months, not all VA non-surgical procedures are included; 2) All procedures from the Department of Defense facilities. Procedure Procedure Type Code Date Perfomer Comments Sour e SKIN TEST; TUBERCULOSIS, INTRADERMAL 01/01/20 11 [facility] AUDIOMETRIC TESTING OF GROUPS 12/31/19 11 [facility] TYPHOID VACCINE, CAPSULAR POLYSACCHARIDE (VICPS), FOR INTRAMUSCULAR USE 09/24/19 11 [facility] NEUROPSYCHOLOGICAL TESTING (EG, [place] CARD SORTING TEST), ADMINISTERED BY A COMPUTER, WITH QUALIFIED HEALTH MENHADEN FISHING CREW MEMBER INTERPRETATION AND REPORT 09/24/19 11 [facility] FITTING OF SPECTACLES, EXCEPT FOR APHAKIA; BIFOCAL 05/10/20 13 [facility] WELLNESS ASSESSMENT, PERFORMED BY NON-PHYSICIAN 04/11/20 13 [facility] Spectacles Services Fitting Bifocal Except For Aphakia [facility]acles Services Fitting Bifocal Except For Aphakia 10764 05/10/20 13 PAULINE CALIX [facility] Fitting Monofocal Except For Aphakia [facility] Fitting Monofocal Except For Aphakia 94474 05/10/20 13 PAULINE CALIX Ophthalmological New Patient Start Comprehensive Care Ophthalmological New Patient Start Comprehensive Care 48236 05/10/20 13 PAULINE CALIX Determination Of Refractive State Determination Of Refractive State 47943 05/10/20 13 PAULINE CALIX Patient education, not otherwise cla ified, non-physician provider, individual, per se ion 04/12/20 13 JONE KAUFFMAN [facility] Patient education, not otherwise cla ified, non-physician provider, group, per se ion 04/12/20 13 JONE KAUFFMAN [facility] Olivier dubois, performed by non-physician 04/12/20 13 JONE KAUFFMAN Audiometry Group Testing Audiometry Group Testing 43309 01/01/20 11 ARACELIS RODRIGUEZ V. [facility] Skin Test Anergy tuberculin Skin Test Anergy tuberculin 14106 12/31/19 11 CECE BARRAZA [facility] Venipuncture Venipuncture 87355 12/31/19 11 CECE BARRAZA [facility] Threshold Audiogram (Pure Tone) Threshold Audiogram (Pure Tone) 12519 12/31/19 11 CECE BARRAZA Psychometric Neuropsych Testing Battery Admin By Computer Psychometric Neuropsych Testing Battery Admin By Computer 19099 09/25/19 11 SIA SINGH [facility] Typhoid Vaccine Vi Capsular Polysaccharide, For Intramus Use Typhoid Vaccine Vi Capsular Polysaccharide, For Intramus Use 63074 09/24/19 11 REBECA SEVERINO [facility] Immunization Administration By Injection, One Vaccine Immunization Administration By Injection, One Vaccine 76048 09/24/19 11 REBECA SEVERINO [facility] Venipuncture Venipuncture 97113 09/24/19 11 REBECA SEVERINO [facility] Hepatitis B Vaccine (Active) Adult Dosage 09/24/19 11 REBECA SEVERINO [facility] Tdap Vaccine Tdap Vaccine 63214 09/24/19 11 REBECA SEVERINO [facility] Social History Combined list of available smoking, tobacco, and other social history from Department of Defense and Veterans Affairs facilities. Social History Type Response Date Comment Sourc e This section is an empty social history section. DoD
--- NOTE | 2025-01-08 02:23 | CRLHL7_ITS ---
For Patients: As a result of the Century Cures Act, medical imaging exams and procedure reports are released immediately into your electronic medical record. You may view this report before your referring provider. If you have questions, please contact your health care provider. INDICATION: Abdominal pain. TECHNIQUE: CT abdomen and pelvis acquired with 83 cc Isovue 370 IV contrast. COMPARISON: 12/18/2021. FINDINGS: Lower chest: Mild bibasilar atelectasis. Liver: Unremarkable. Normal in size and attenuation. No suspicious masses. Gallbladder and bile ducts: Unremarkable. No stones or inflammation. No biliary ductal dilatation. Spleen: Unremarkable. Normal in size. No masses. Adrenal glands: Unremarkable. No nodules. Pancreas: Unremarkable. No mass or inflammation. Kidneys: Unremarkable. No suspicious masses, stones, or hydronephrosis. GI tract: Unremarkable. Normal in caliber. No evidence of obstruction. Normal appendix. Lymph nodes: No lymphadenopathy. Vasculature: Unremarkable. Omentum/Peritoneum/Abdominal Wall: Small fat containing ventral wall hernias. No free air or significant free fluid. Pelvis: Unremarkable. 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 IMPRESSION: No acute abdominal or pelvic abnormality. Please note that all CT scans at this facility use dose modulation, iterative reconstruction, and/or weight-based dosing when appropriate to reduce radiation dose to as low as reasonably achievable. Dictated by Michael Maria MD @ 01/08/2025 3:22:22 AM (Electronically Signed)
[2025-01-08 02:29] LABS: Lactate* 1.1 mmol/L (0.5-1.9)
--- OUTSIDE RECORDS SUMMARY | 2025-01-08 02:30 | XMS_ITS | Clinical Summary ---
Author Organization [facility] Address [address] , [address] [place] [address] Phone Care Team Providers Care Machine Zipper Trimmer Name Role Phone [facility] Unavailable Unava ilable Conditions or Problems Problem Name Problem Code Onset Date Status Entry Date Provider Comment Standard Description Annotate Insomnia 682111155 (SNOMED CT) 11/11 Active 11/17 Yuliya Thursday Insomnia PTSD 45451965 (SNOMED CT) 11/11 Active 11/17 Yuliya Thursday Posttraumatic stress disorder Depression with anxiety 712648297 (SNOMED CT) 11/11 Active 11/17 Yuliya Thursday Mixed anxiety and depressive disorder Obstructive sleep apnea, severe 55694455 (SNOMED CT) 11/11 Active 11/11 Yuliya Thursday Obstructive sleep apnea syndrome Small bowel obstruction 371552500 (SNOMED CT) 12/29 Active 11/09 Liza Rich Small bowel obstruction Imported from [facility]: [facility] ( at 11:29:32 AM) Seasonal affective disorder 755222371 (SNOMED CT) 01/08 Active 11/09 Liza Rich Seasonal affective disorder Imported from [facility]: [facility] ( at 11:29:32 AM) OCD (obsessive compulsive disorder) F42.9 (ICD-10-CM ) Active 11/09 Liza Rich Obsessive-comp ulsive disorder, unspecified Imported from [facility]: [facility] (26-Feb-202 5 at 11:29:32 AM) Moderate persistent asthma without complication J45.40 (ICD-10-CM ) 01/08 Active 11/09 Liza Rich Moderate persistent asthma, uncomplicated Imported from [facility]: [facility] ( 5 at 11:29:32 AM) 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 Active 11/09 Liza Rich Other congenital malformations of great veins Imported from [facility]: [facility] [employer] [facility] ( at 11:29:32 AM) History of small bowel obstruction Z87.19 (ICD-10-CM ) Active 11/09 Liza Rich Personal history of other diseases of the digestive system Imported from A: [facility] ( at 11:29:32 AM) H/O small bowel obstruction Z87.19 (ICD-10-CM ) 05/09 Active 11/09 Liza Rich Personal history of other diseases of the digestive system Imported from [facility]: [employer] [facility] [employer] [facility] ( at 11:29:32 AM) Generalized anxiety disorder 41232752 (SNOMED CT) Active 11/09 Liza Rich Generalized anxiety disorder Imported from [facility]: [facility] ( at 11:29:32 AM) DVT of deep femoral vein, left I82.412 (ICD-10-CM ) 01/06 Active 11/09 Liza Rich Acute embolism and thrombosis of left femoral vein Imported from [facility]: [facility] [employer] [facility] ( at 11:29:32 AM) Medications Medication Instructions Start Date Stop Date Generic Name ND Provider QUVIVIQ 25 MG TABS take 1 tab within 30 minutes of bed for insomnia daridorexant [id number] Yuliya Thursday SILDENAFIL CITRATE 50 MG TABS Take 1 tablet by mouth once daily if needed for Erectile Dysfunction. Take 30min to 4 hours before sexual activity. Max 100mg/24hr sildenafil [id number] QIEUSER QIEUSER PRAZOSIN HCL 2 MG CAPS Take 2 Capsules (4 mg) by mouth at bedtime. prazosin [id number] QIEUSER QIEUSER OLOPATADINE HCL 0.1 % SOLN Place 1 Drop into both eyes two times daily. olopatadine 41084167755 QIEUSER QIEUSER NAPROXEN SODIUM 220 MG TABS Take 2 tablets by mouth every 12 hours if needed (myalgias). naproxen sodium 59734969849 QIEUSER QIEUSER LORAZEPAM 0.5 MG TABS Take 0.5-1 Tablets (0.25-0.5 mg) by mouth once daily if needed for Anxiety. For social functions. Do not consume alcohol when using. lorazepam 98699575759 QIEUSER QIEUSER FINASTERIDE 1 MG TABS Take 1 mg by mouth once daily in the morning. finasteride 95164778935 QIEUSER QIEUSER ESZOPICLONE 3 MG TABS Take 0.5 Tablets (1.5 mg) by mouth at bedtime. eszopiclone 12015665379 QIEUSER QIEUSER CPAP CPAP (E0601) machine for home use at pressure: 7-18 , Choice of mask (A7030 or A7034) w/full face cushion (A7031) x1/mo, nasal cushion (A7032) x2/mo, or nasal pillows (A7033) x 2/mo; Length of Need: 99 months; Frequency of use: Daily CPAP QIEUSER QIEUSER BENZONATATE 200 MG CAPS TAKE ONE CAPSULE BY MOUTH THREE TIMES DAILY NEEDED FOR COUGH benzonatate 38957530417 QIEUSER QIEUSER ATOMOXETINE HCL 25 MG CAPS Take 1 Capsule (25 mg) by mouth once daily. atomoxetine 06366466813 QIEUSER QIEUSER ARIPIPRAZOLE 2 MG TABS Take 0.5-1 Tablets (1-2 mg) by mouth once daily. Patient needs range dose. aripiprazole 13701893709 QIEUSER QIEUSER ALBUTEROL SULFATE HFA 108 (90 Base) MCG/ACT AERS Inhale 2 Puffs by mouth every 6 hours if needed for Shortness of Breath 1st choice or Wheezing 2nd choice. albuterol sulfate 82567683347 QIEUSER QIEUSER ALBUTEROL SULFATE (5 MG/ML) 0.5% NEBU Inhale 0.5 mL (2.5 mg) via a nebulizer every 6 hours if needed for Shortness Of Breath. albuterol sulfate 16091831590 QIEUSER QIEUSER Medications Administered No information available. [...] Procedures Code Procedure Name Date Entry Date [facility]-[id number] Documentation of current medicatio ns Vital Signs No information available. Immunizations No information available. Advance Directives No information available.
--- OUTSIDE RECORDS SUMMARY | 2025-01-08 02:30 | XMS_ITS | Continuity of Care Document ---
Author Name [facility] Organization [facility] Care Team Providers Care Advisor Advocate Angel Co Founder Name Role Phone [facility] Unavailable Unavailable Problems Combined list of problems from Department of Defense and Veterans Affairs facilities. It does not include entries that were removed or entered in error. Problem Status Onset Date Problem Type Date of Resolution Comments Source visit for: administrative purpose Inactive Condition [facility] assessment of patient condition work status Active Condition [facility] astigmatism Active Condition DoD refractive error - hypermetropia Active Condition [facility] presbyopia Active Condition [facility] visit for: routine eye exam Inactive Condition Do[facility] cough Active Condition [facility] Patient Education Inactive Condition [facility] visit for: screening exam Inactive Condition [facility] visit: ears/hearing exam for hearing conservation, treatment Inactive Condition [facility] visit for: screening exam pulmonary tuberculosis Inactive Condition [facility] visit for: investigation / testing Inactive Condition [facility] vertigo Inactive Condition DoD diarrhea Active Condition DoD multiple environmental allergies Inactive Condition [facility] bronchitis Inactive Condition [facility] visit for: services physical Active Condition [facility]D [...] ORAL, XLCARE PHARMACE, 500 ea. BOTTLE Active [id number] 4 2023 45 Pharmac y Data Transac tion Service Facilit y BENZONATATE (benzonatat e), 200 MG, CAPSULE, ORAL, CAMBER PHARMACE, 100 ea. BOTTLE Active [id number] 2023 30 Pharmac y Data Transac tion Service Facilit y BENZONATATE (benzonatat e), 200 MG, CAPSULE, ORAL, CAMBER PHARMACE, 100 ea. BOTTLE Active [id number] 2023 21 Pharmac y Data Transac tion Service Facilit y CLOBETASOL PROPIONATE (clobetasol propionate) , 0.05 %, CREAM (G), TOPICAL, ENCUBE ETHICALS, 15 g TUBE Active [id number] 2023 60 Pharmac y Data Transac tion Service Facilit y DOXYCYCLINE MONOHYDRATE (DOXYCYCLIN E MONOHYDRATE ), 100 MG, CAPSULE, ORAL, LUPIN PHARMACEU, 50 ea. BOTTLE Active [id number] 2023 14 Pharmac y Data Transac tion Service Facilit y FLUVOXAMINE MALEATE (FLUVOXAMIN E MALEATE), 25 MG, TABLET, ORAL, ANI PHARMACEUTI , 100 ea. BOTTLE Active [id number] 2023 180 Pharmac y Data Transac tion Service Facilit y GABAPENTIN (GABAPENTIN ), 250 MG/5ML, SOLUTION, ORAL, ACELLA PHARMACE, 470 ml BOTTLE Active [id number] 2023 100 Pharmac y Data Transac tion Service Facilit y LORAZEPAM (lorazepam) , 0.5 MG, TABLET, ORAL, LEADING PHARMA, 100 ea. BOTTLE Cancele d [id number] : 2023 0 Pharmac y Data Transac tion Service Facilit y LORAZEPAM (lorazepam) , 0.5 MG, TABLET, ORAL, LEADING PHARMA, 100 ea. BOTTLE Cancele d [id number] : 2023 0 Pharmac y Data Transac tion Service Facilit y LORAZEPAM (lorazepam) , 0.5 MG, TABLET, ORAL, LEADING PHARMA, 100 ea. BOTTLE Active [id number] 2023 5 Pharmac y Data Transac tion Service Facilit y LORAZEPAM (lorazepam) , 0.5 MG, TABLET, ORAL, LEADING PHARMA, 100 ea. BOTTLE Active [id number] 2023 5 Pharmac y Data Transac tion Service Facilit y MODAFINIL (MODAFINIL) , 100 MG, TABLET, ORAL, APOTEX MANASA, 30 ea. BOTTLE Active [id number] 2023 135 Pharmac y Data Transac tion Service Facilit y MODAFINIL (MODAFINIL) , 100 MG, TABLET, ORAL, APOTEX MANASA, 30 ea. BOTTLE Active [id number] 2023 135 Pharmac y Data Transac tion Service Facilit y PANTOPRAZOL E SODIUM (PANTOPRAZO LE SODIUM), 20 MG, TABLET DR, ORAL, CAMBER PHARMACE, 90 ea. BOTTLE Active [id number] 2023 90 Pharmac y Data Transac tion Service Facilit y PANTOPRAZOL E SODIUM (PANTOPRAZO LE SODIUM), 20 MG, TABLET DR, ORAL, CAMB PHARMACE, 90 ea. BOTTLE Active [id number] 2023 90 Pharmac y Data Transac tion Service Facilit y Allergies, Adverse Reactions, Alerts Combined list of allergies from Department of Defense and Veterans Affairs facilities. It does not include entries that were removed or entered in error. Substance Category Reaction Severity Reaction type Status Date Reported Comments Source No Known Allergies Drug allergy (disorder) active 09/24/2010 Michelle Guzmanning [place] Immunizations Combined list of available immunizations from the Department of Defense and Veterans Affairs facilities. Immunization Series Date Given Administered By Site Reaction Lot Number CVX Code Drug Fermentation Scientist Status Comments Source influenza, injectable, quadrivalent 2019 IZABELLA, () Not Given influenza , injectabl e, quadrival ent DoD influenza, injectable, quadrivalent 2019 IZABELLA, () Not Given influenza , injectabl e, quadrival ent DoD influenza, injectable, quadrivalent 2015 REJI LEWIS () Not Given influenza , injectabl e, quadrival ent DoD Influenza, seasonal, injectable, preservative free 1 2011 [id number] [employer] (CSL) complet ed Influenza , seasonal, injectabl e, preservat nicole free DoD Influenza, seasonal, injectable, preservative free 1 2010 [id number] 140 [employer] (CSL) complet ed Influenza , seasonal, [...] acellular pertu is vaccine, adsorbed 1 2010 [id number] Sanofi Pasteur ([facility]) complet ed tetanus toxoid, reduced diphtheri a toxoid, and acellular pertussis vaccine, adsorbed DoD influenza virus vaccine, split virus (incl. purified surface antigen)-reti red CODE 1 2009 [id number] [employer] (CS) complet ed influenza virus vaccine, split virus (incl. purified surface antigen)- retired CODE DoD anthrax vaccine 1 2009 [id number] 24 Other (OTH) complet ed anthrax vaccine [...] dosage DoD vaccinia (smallpox) vaccine 0 2002 [id number] [employer] (NANCY) complet ed vaccinia (smallpox [...] Source Michelle Guzman [place]([facility]) OUTPATIENT [id number] KARLIESIA Rodarte 09/24 Released w/o Limitations Michelle Guzman [place]([facility]) Michelle Guzman [place]([facility]) OUTPATIENT [id number] DAWNA DONOVAN 09/24 Released w/o Limitations Michelle Guzman [place](Read iness Process [facility]) [facility] OUTPATIENT [id number] 10/07 Released w/o Limitations Theater [facility] OUTPATIENT [id number] 12/13 Released w/o Limitations Theater [facility] OUTPATIENT [id number] 12/13 Released w/o Limitations Theater [facility] OUTPATIENT [id number] 12/16 Released w/o Limitations Theater [facility] OUTPATIENT [id number] 12/16 Released w/o Limitations Theater Fac[facility] OUTPATIENT [id number] 12/17 Released w/o Limitations Theater Facilit y Michelle Guzman [place](Readin ess Processin [facility]) OUTPATIENT [id number] [facility] GISELL GERMAN 12/30 Released w/o Limitations Michelle Guzman [place](Read iness Process [facility]) Michelle Guzman [place]([employer] [facility]) OUTPATIENT [id number] post develop ment hearing exam ARACELIS RODRIGUEZ Ralph 12/30 Released w/o Limitations Michelle Guzman [place]([employer] ) [facility]) OUTPATIENT [id number] Notes Entered by: EMANUEL ESQUIVEL 11 Apr 2013 1327 ------- ------- ------- ------- -- WTR JONE KAUFFMAN 04/11 Released w/o Limitations [facility] Promoti ons) [facility]) TELE CONSULT [id number] Notes Entered by: SONJA RUELAS 20 Apr 2013 0943 ------- ------- ------- ------- -- PCM Ms Passer: patient seen at local urgent care on 04/09/13 for cough SONJA RUELAS. 04/20 [facility]) [facility]) OUTPATIENT [id number] PAULINE Hanks 05/10 Released w/o Limitations [facility]) [facility]) OUTPATIENT [id number] Notes Entered by: BRY SWEET 30 May [...] e SKIN TEST; TUBERCULOSIS, INTRADERMAL 01/01/20 11 [facility] AUDIOMETRIC TESTING OF GROUPS 12/31/19 11 [facility] TYPHOID VACCINE, CAPSULAR POLYSACCHARIDE (VICPS), FOR INTRAMUSCULAR USE 09/24/19 11 [facility] NEUROPSYCHOLOGICAL TESTING (EG, [place] CARD SORTING TEST), ADMINISTERED BY A COMPUTER, WITH QUALIFIED HEALTH CAN STACKER INTERPRETATION AND REPORT 09/24/19 11 [facility] FITTING OF SPECTACLES, EXCEPT FOR APHAKIA; BIFOCAL 05/10/20 13 [facility] WELLNESS ASSESSMENT, PERFORMED BY NON-PHYSICIAN 04/11/20 13 [facility] Fitting Bifocal Except For Aphakia [facility] Fitting Bifocal Except For Aphakia 32256 05/10/20 13 PAULINE CALIX [facility] Fitting Monofocal Except For Aphakia [facility] Fitting Monofocal Except For Aphakia 42574 05/10/20 13 PAULINE CALIX Ophthalmological New Patient Start Comprehensive Care Ophthalmological New Patient Start Comprehensive Care 02462 05/10/20 13 PAULINE CALIX Determination Of Refractive State Determination Of Refractive State 81816 05/10/20 13 PAULINE CALIX Patient education, not otherwise cla ified, non-physician provider, individual, per se ion 04/12/20 13 JONE KAUFFMAN [facility] Patient education, not otherwise cla ified, non-physician provider, group, per se ion 04/12/20 13 JONE KAUFFMAN [facility] Olivier dubois, performed by non-physician 04/12/20 13 JONE KAUFFMAN Audiometry Group Testing Audiometry Group Testing 32484 01/01/20 11 ARACELIS RODRIGUEZ V. [facility] Skin Test Anergy tuberculin Skin Test Anergy tuberculin 06547 12/31/19 11 CECE BARRAZA [facility] Venipuncture Venipuncture 03426 12/31/19 11 CECE BARRAZA [facility] Threshold Audiogram (Pure Tone) Threshold Audiogram (Pure Tone) 46107 12/31/19 11 CECE BARRAZA Psychometric Neuropsych Testing Battery Admin By Computer Psychometric Neuropsych Testing Battery Admin By Computer 16508 09/25/19 11 SIA SINGH [facility] Typhoid Vaccine Vi Capsular Polysaccharide, For Intramus Use Typhoid Vaccine Vi Capsular Polysaccharide, For Intramus Use 01610 09/24/19 11 REBECA SEVERINO [facility] Immunization Administration By Injection, One Vaccine Immunization Administration By Injection, One Vaccine 16030 09/24/19 11 REBECA SEVERINO [facility] Venipuncture Venipuncture 06548 09/24/19 11 REBECA SEVERINO [facility] Hepatitis B Vaccine (Active) Adult Dosage 09/24/19 11 REBECA SEVERINO [facility] Tdap Vaccine Tdap Vaccine 25781 09/24/19 11 REBECA SEVERINO [facility] Social History Combined list of available smoking, tobacco, and other social history from Department of Defense and Veterans Affairs facilities. Social History Type Response Date Comment Sourc e This section is an empty social history section. [facility]D
--- OUTSIDE RECORDS SUMMARY | 2025-01-08 02:30 | XMS_ITS | Clinical Summary ---
Author Organization [facility] Address [address] [place] [id number] Care Team Providers Care Sales And Marketing Administrator Name Role Phone Dominguez Reyes MD Primary Care Provider [phone] Neema Lopes JOINERY MACHINIST Unavailable [phone] Allergies Active Allergy Reactions Criticality Noted Date [...] bowel obstruction 07/03/2020 Overview (07/03/2020): Hospitalized at [facility], unknown etiology OCD (obsessive compulsive disorder) 07/03/2020 Generalized anxiety disorder 07/03/2020 Moderate persistent asthma without complication 01/09/2020 Seasonal affective disorder Encounters Date Type Department Care Team Description 01/05/2025 10:45 AM CDT Nurse/Clinic Staff Only [facility] [address] [place] [address] Immunization/Injec tion (ALLERGY INJECTION ) 01/05/2025 Travel 12/28/2024 4:00 PM CDT Ancillary Procedure [facility] [address] [place] [address] 12/28/2024 2:25 PM CDT Office Visit [facility] [address] [place] [address] Dominguez Reyes MD Back Pain (lower back pain on both left and right just a bad pain patient states chronic for 3-4 months.); Eye Problem (has extra skin on eye lids hoping for removal refferal); Immunization/Injec tion 12/28/2024 Travel 12/25/2024 Refill [facility] at [address] [place] [address] Jenny Mcgill NP Refill Request (Atomoxetine) 12/21/[address] [facility] [address] Jenny Mcgill NP Refill Request (Atomoxetine 25mg) 12/13/2024 2:30 PM CDT Telemedicine [address] [place] [address] Jenny Mcgill NP Telehealth ([place]) 12/13/2024 11:15 AM CDT Telemedicine [facility] [address] [facility] [address] [place] [address] Vel Rodriguez, Eric, LP Mental Health Intake; Telehealth; Sleep Problem 12/13/2024 Travel 12/08/2024 12:45 PM CDT Nurse/Clinic Staff Only [facility] [address] [place] [place] [address] Immunization/Injec tion (ALLERGY INJECTION ) 12/08/2024 Travel 11/28/2024 Telephone [facility] at [address] [place] [address] Jenny Mcgill, JOINERY MACHINIST Medication Management (Atomoxetine 10 mg) 11/21/2024 Refill [facility] at [address] [place] [place] [address] Jenny Mcgill, JOINERY MACHINIST Refill Request (Atomoxetine 25MG) 11/10/2024 10:15 AM ATMOSPHERIC SCIENCES PROFESSOR Nurse/Clinic Staff Only [facility] [address] [place] [address] Immunization/Injec tion (Allergy shot/) 11/10/2024 Travel 10/28/2024 11:15 AM ATMOSPHERIC SCIENCES PROFESSOR Telemedicine [facility] [address] [place] [address] [address] [place] [address] Neema Lopes, MAIKEL Telehealth 10/28/2024 Travel 10/13/2024 10:15 AM ATMOSPHERIC SCIENCES PROFESSOR Nurse/Clinic Staff Only [facility] [address] [place] [address] Immunization/Injec tion (ALLERGY INJECTION ) 10/13/2024 Travel from Last 3 Months Immunizations Immunization Administration Dates Next Due Anthrax Vaccine 08/25/2010 COVID-19 VACCINE SPIKEVAX (M ODERNA 50MCG/0.5ML) 12YO+ PFS 06/29/2023 COVID-19 vaccine ([employer] 30mcg/0.3mL) PF, MDV 07/22/2021,12/29/2020,12/08/2020 Hepatitis A (Adult) 06/18/2003,02/12/1999 Hepatitis B (Adult) 09/24/2010, 3,01/29/2003,2000 INFLUENZA, IIV3 PF (AGE >= 6 MO) 07/02/2024 Influenza Virus, Unspecified 07/03/2017,05/30/20 15 Influenza, IIV4 06/08/2023,05/16/2022,07/03/2017 Influenza, IIV4 (=>6mos) MDV 06/26/2020, 11/05/2019,07/05/2018,2015,05/09/2016 Oral Polio Vaccine 05/05/1989,02/26/1989 Pneumococcal Conj 20-valent (Prevnar 20) 07/22/2024 Smallpox (Vaccinia) Live [id number] 11/06/2002 Td (Age >=7 Years) 12/06/2021,01/29/2003, 001 [...] 36.7 C (98 F) 07/22/2024 11:22 AM ATMOSPHERIC SCIENCES PROFESSOR Respiratory Rate 14 05/27/2022 5:25 PM CDT [...] Info) Description 01/17/2025 11:00 AM CDT Appointment [facility] [address] [place] [address] Jarad Browne, PT [address] [place] [address] 01/30/2025 11:15 AM CDT Telemedicine [facility] [address] [address] Vel Rodriguez, Eric, LP [address] [address] 02/02/2025 10:45 AM CDT Nurse/Clinic Staff Only [address] [place] [address] 02/07/2025 11:15 AM CDT Telemedicine [facility] [address] [address] Vel Rodriguez PsyD, LP [address] [facility] [address] [place] [address] 02/14/2025 11:15 AM CDT Telemedicine [facility] [address] [facility] [address] [place] [address] Vel Rodriguez PsyD, LP [address] [facility] [address] [place] [address] 02/21/2025 10:30 AM CDT Telemedicine [facility] [address] [place] [address] Vel Rodriguez PsyD, LP [address] [place] [address] 04/03/2025 9:00 AM CDT Office Visit [facility] [address] [place] [address] Jono Phan MD [address] [place] [address] Health Maintenance Due Date Last Done Comments [...] 12/28/2024, 07/02/2024 Medical Devices Implanted Type Area Metal Cleaner Device Identifier Shelf Expiration Date Model / Serial / Lot Mesh Ventral 1.7in Ventralex St W/Strap - [id number] Implanted:Qty: 1 on 02/24/2018 by Jose Solorzano MD at [facility] N/A: Abdomen [employer] 01/10/2020 [id number] / / [id number] Procedures Procedure Name Priority Date/Time Associated Diagnosis Comments XR SPINE LUMBAR 3 VIEWS Routine 12/28/2024 3:58 PM CDT Low back pain at multiple sites LIPID PANEL W REFLEX MEASURED LDL Routine 07/22/2024 12:33 PM ATMOSPHERIC SCIENCES PROFESSOR Prediabetes COLONOSCOPY 01/09/2017 10:19 AM CDT from [...] W REFLEX MEASURED LDL (07/22/2024 12:33 PM ATMOSPHERIC SCIENCES PROFESSOR) CHOLESTEROL, TOTAL 211(H) <200 mg/dL [facility] HDL CHOLESTEROL 48 > OR = 40 mg/dL [facility] TRIGLYCERIDES 209(H) <150 mg/dL [facility] Comment: If a non-fasting specimen was collected, consider repeat triglyceride testing on a fasting specimen if clinically indicated. Luisa et al. J. of Clin. Lipidol. 2015;9:129-169. LDL-CHOLESTEROL 128(H) mg/dL (calc) [facility] Comment: Reference range: <100 Desirable range <100 mg/dL for primary prevention; <70 mg/dL for patients with CHD or diabetic patients with > or = 2 CHD risk factors. LDL-C is now calculated using the Zeb-Baron calculation, which is a validated novel method providing better accuracy than the Friedewald equation in the estimation of LDL-C. Zeb SS et al. АЛЕКСАНДР. 2013;310(19): 0652-1059 (http://education.BURLESQUICEOUS/faq/VBM909) CHOL/HDLC RATIO 4.4 <5.0 (calc) [facility] NON HDL CHOLESTEROL 163(H) <130 mg/dL (calc) [facility] Comment: For patients with diabetes plus 1 major ASCVD risk factor, treating to a non-HDL-C goal of <100 mg/dL (LDL-C of <70 mg/dL) is considered a therapeutic option. Blood BLOOD SPECIMEN / Unknown 07/22/2024 12:33 PM ATMOSPHERIC SCIENCES PROFESSOR 07/22/2024 12:34 PM ATMOSPHERIC SCIENCES PROFESSOR Dominguez Reyes MD CHEMISTRY Final Resu lt [facility] [address] [place] [address], [employer] [facility] [address] [place] [phone] * COLONOSCOPY (01/09/2017 10:19 AM CDT) 01/09/2017 10:1 9 AM CDT Narrative Transcriptions RashadJose whitfield - 01/09/2017 11:23 AM CDT Patient Name: [...] Most Recently Relevant to Health Maintenance Insurance [facility] Advance Directives * Full Code (Latest Code Status on File) Date Activated Date Inactivated Comments 12/28/2021 1:58 PM 12/29/2021 3:26 PM Question Answer Comments Code Status Discussion: Reviewed Preferences * Full Code Date Activated Date Inactivated Comments 02/24/2018 8:54 AM 02/24/2018 4:37 PM * Full Code Date Activated Date Inactivated Comments 01/09/2017 10:32 AM 01/10/2017 2:29 AM Care Teams Sales And Marketing Administrator Relationship Specialty Start Date End Date Dominguez Reyes MD [address] [place] [address] PCP - General Family Practice 08/05/23 Neema Lopes NP [address] [place] [address] Sleep Medicine 05/20/24
[2025-01-08 02:33] LABS: Basophils Percent Auto 0.4 % (0.0-3.0); Hematocrit 40.5 % (37.0-53.0); Hemoglobin* 13.7 gm/dL (13.5-17.5); Immature Granulocytes Pct Auto 0.4 %; Lymphocytes Percent Auto 15.2 % (20-44); Mean Corpuscular HGB Conc 34 gm/dL (32-36); Mean Corpuscular Hemoglobin 32 pg (26-34); Mean Corpuscular Volume 94 fL (80-100); Monocytes Percent Auto 7.7 % (0.0-11.0); Neutrophils Percent Auto 74.3 % (42.0-72.0); Platelet Count* 248 K/uL (140-440); RDW Coefficient of Variation % 12.7 % (11.5-15.5); Red Blood Count 4.33 m/uL (4.30-5.90); White Blood Count* 11.79 K/uL (4.50-11.00)
--- NOTE | 2025-01-08 02:33 | ED_ITS ---
HPI - General Adult General Chief complaint: Abdominal Pain Stated complaint: possible small bowel obstruction Time Seen by Provider: 01/08/25 02:04 Source: patient Mode of arrival: ambulatory Limitations: no limitations History of Present Illness HPI narrative: 59-year-old male with a notable prior history of small-bowel obstruction that required resection spring presents to the emergency department for ev aluation of abdominal distension and discomfort with nausea. No karlos vomiting though he does feel like he could. No injury or trauma. He was camping over the weekend, cut his trip short since he was not feeling well. Symptoms started about 2 hours ago. Feels similar to previous bowel obstruction. No fever. No bloody stools. Last bowel movement was about an hour prior to arrival, benign. No urinary changes. Did not try any interventions or medications to help with symptoms. Prior notes reviewed. Past medical history notable for anxiety. Reports that his only home medication is currently Luvox. Currently taking 50 mg once daily. 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 Oncology notes indicate discontinuation February of 2023. Last meal 1900. No history of surgical or anesthesia complications. ROS notable for the GI symptoms only, otherwise denies times 12 systems. Related Data Home Medications ?Medication ?Instructions ?Recorded ?Confirmed albuterol sulfate 90 mcg/actuation inhalation 06/03/22 03/03/23 aerosol inhaler fluticasone propionate 230 inhalation 06/03/22 03/03/23 mcg-salmeterol 21 mcg/actuation HFA inhaler (Advair HFA) fluvoxamine 25 mg tablet 37.5 mg PO ONCE 06/03/22 03/03/23 naproxen sodium 220 mg capsule 440 mg PO QDAY 06/03/22 03/03/23 (Aleve) omeprazole 20 mg capsule,delayed 20 mg PO DAILY 03/03/23 03/03/23 release triamcinolone acetonide 55 mcg 1 spray intranasal QDAY 03/03/23 03/03/23 nasal spray aerosol (Nasacort) Allergies Allergy/AdvReac Type Severity Reaction Status Date / Time No Known Drug Allergies Allergy Verified 01/08/25 03:06 [facility] Social History Smoking Status: Never smoker Exam Const: Vital Signs, click to edit/add: Vital Signs - 24 hr 04/27/25 02:04 Temperature 97.6 F Pulse Rate [Left P ulse Oximeter] 67 Respiratory Rate 16 Blood Pressure [Ri ght Upper Arm] 120/77 Pulse Oximetry 97 Oxygen Delivery Me thod Room Air Documenting provider has reviewed patient's vital signs: yes Common normals: no apparent distress General appearance: well kempt Other: Friendly and cooperative, excellent historian. HENMT: Common normals: normocephalic, moist oral mucous membranes and oropharynx normal Head and scalp: normocephalic Face and sinus: normal facial exam Mouth: oral and palatal mucosa normal Eye: Common normals: conjunctivae normal General eye: normal appearance of both eyes Conjunctiva: conjunctiva(e) normal Neck & C-Spine: Common normals: full ROM and no lymphadenopathy Resp: Common normals: normal respiratory effort, no use of accessory muscles and clear to auscultation bilaterally Effort & inspection: able to speak in complete sentences Auscultation: clear to auscultation bilaterally Cardio: Common normals: regular rate, regular rhythm, S1 normal heart sound, S2 normal heart sound and no murmurs Rate: regular rate Rhythm: regular rhythm Heart sounds: S1 normal and S2 normal GI: Other: Abdomen appears mildly distended. Surgical scarring is consistent with reported history of laparotomy. Bowel sounds sound hyperactive throughout the mostly in the right upper abdomen. Mild diffuse tenderness with no rebound tenderness, guarding or mass. Extremity: Common normals: normal to inspection and no pedal edema Neuro: Common normals: moves all extremities Speech: speech normal Motor exam: no tremor noted Psych: Appearance: well kempt Attitude: engaged Activity/motor behavior: appropriate eye contact Attention/concentration: attention grossly intact Memory/cognition: memory grossly intact Insight: insight good Judgement: judgment good Skin: Common normals: no rashes or lesions noted General skin exam: no rashes or lesions noted Course Course ED Course: 59-year-old male with 2 hours of abdominal distension, nausea and discomfort suspicious for partial small bowel obstruction. Prior history of small-bowel obstruction as well. Recommended IV placement, Zofran, Toradol, Dilaudid p.r.n.. CT of the abdomen and pelvis. Typical intra-abdominal labs. Await findings. Reevaluation(s) Time of Reevaluation #1: 03:36 Reevaluation #1: Patient still nauseated though he has had no further vomiting. Pain is reas onably controlled on the Toradol. Counseled patient on the benign findings of the CT which is encouraging. This could be a case of gastroenteritis or it could be a an early partial small-bowel obstruction that seems to be relieving itself. Either way, there certainly is no sign of a major transition point, severe obstruction, internal hernia or other dangerous condition on the CT. I would recommend that we do a trial of home management, Zofran, Tylenol and ibuprofen as needed and slowly advancing the diet over the next 12 hours. Counseled patient that sometimes these partial small-bowel obstructions can remit and then relapse and I would want him to come back if things worsen. He verbalizes understanding and agreement. Written instructions provided. Zofran prescription provided as well. Vital Signs Vital signs: Initial Vital Signs Temperature 97.6 F 01/08/25 02:04 Temperature Source Temporal Artery Scan 01/08/25 02:04 Pulse Rate 67 01/08/25 02:04 Pulse Rhythm Regular 01/08/25 02:04 Respiratory Rate 16 01/08/25 02:04 Blood Pressure 120/77 01/08/25 02:04 Blood Pressure Mean 91 01/08/25 02:04 Blood Pressure Position Sitting 01/08/25 02:04 Pulse Oximetry 97 01/08/25 02:04 Oxygen Delivery Method Room Air 01/08/25 02:04 Vital Signs Temperature 97.6 F 01/08/25 02:04 Pulse Rate 67 01/08/25 02:04 Respiratory Rate 16 01/08/25 02:04 Blood Pressure 120/77 01/08/25 02:04 Pulse Oximetry 97 01/08/25 02:04 Oxygen Delivery Method Room Air 01/08/25 02:04 Temperature 97.6 F 01/08/25 02:04 Pulse Rate 67 01/08/25 02:04 Respiratory Rate 16 01/08/25 02:04 Blood Pressure 120/77 01/08/25 02:04 Pulse Oximetry 97 01/08/25 02:04 Oxygen Delivery Method Room Air 01/08/25 02:04 Medications Administered Medications: Generic Name Dose Route Start Last Admin Trade Name Freq PRN Reason Stop Dose Admin Ketorolac Tromethamine 15 mg 01/08/25 02:23 01/08/25 02:39 Ketorolac 15 Mg/Ml Inj IVP 01/08/25 02:24 15 mg ONCE ONE Administration Ondansetron HCl 4 mg 01/08/25 02:23 01/08/25 02:39 Ondansetron 2 Mg/Ml Inj IVP 01/08/25 02:24 4 mg ONCE ONE Administration Medical Decision Making Lab Data Lab results reviewed: Yes I reviewed the patient's lab results Lab results narrative: Labs quite reassuring. Labs: Lab Results 01/08/25 01/08/25 Range/Units 02:18 03:10 WBC 11.79 H (4.50-11.00) K/uL RBC 4.33 (4.30-5.90) m/uL Hgb 13.7 (13.5-17.5) gm/dL Hct 40.5 (37.0-53.0) % MCV 94 (80-100) fL MCH 32 (26-34) pg MCHC 34 (32-36) gm/dL RDW Coeff of Bipin 12.7 (11.5-15.5) % Plt Count 248 (140-440) K/uL Neut % (Auto) 74.3 H (42.0-72.0) % Lymph % (Auto) 15.2 L (20-44) % Hill % (Auto) 7.7 (0.0-11.0) % Eos % (Auto) 2.0 (0.0-7.0) % Baso % (Auto) 0.4 (0.0-3.0) % Neut # (Auto) 8.80 H (1.7-7.0) K/uL Lymph # (Auto) 1.80 (0.90-2.90) K/uL Hill # (Auto) 0.90 (0.00-0.90) K/UL Eos # (Auto) 0.20 (0.00-0.50) K/uL Baso # (Auto) 0.00 (0.00-0.30) K/uL Abs Immat Gran (auto) 0.00 (0.00-0.30) K/uL Imm/Tot Granulo (auto) 0.4 % Sodium 141 (135-149) mmol/L Potassium 4.0 (3.6-5.1) mmol/L Chloride 103 (96-114) mmol/L Carbon Dioxide 30 (20-32) mmol/L Anion Gap 8 (7-15) mEq/L BUN 23 (7-30) mg/dL Creatinine 0.9 (0.5-1.5) mg/dL Estimated Creat Clear 82.63 Estimated GFR 98 ml/min Glucose 101 (60-115) mg/dL Lactate 1.1 (0.5-1.9) mmol/L Calcium 9.1 (8.4-10.6) mg/dL Total Bilirubin 0.4 (0.1-1.5) mg/dL AST 59 H (12-35) U/L ALT 48 (4-50) U/L Alkaline Phosphatase 51 (40-150) U/L C-Reactive Protein < 0.5 L (0.5-1.0) mg/dL Total Protein 7.5 (6.0-8.3) g/dL Albumin 4.7 (3.3-5.0) g/dL Lipase 92 (23-300) U/L Urine Color Yellow (Yellow) Urine Appearance Clear (Clear) Urine pH 7.0 (5.0-8.5) Ur Specific [place] 1.010 (1.000-1.030) Urine Protein Negative (Negative) Urine Glucose (UA) Negative (Negative) Urine Ketones Negative (Negative) Urine Blood Negative (Negative) Urine Nitrite Negative (Negative) Urine Bilirubin Negative (Negative) Urine Urobilinogen 0.2 (0.2-1.0) Ur Leukocyte Esterase Negative (Negative) Imaging Data CT scan - abdomen: Attestation: I have reviewed the pertinent imaging results. My impression: Enteritis, no signs of obstruction or mass Radiologist's impression: IMPRESSION: No acute abdominal or pelvic abnormality. Please note that all CT scans at this facility use dose modulation, iterative reconstruction, and/or weight-based dosing when appropriate to reduce radiation dose to as low as reasonably achievable. Dictated by Michael Maria MD @ 01/08/2025 3:22:22 AM Discharge Plan Discharge Clinical Impression: Gastroenteritis, History of small bowel obstruction Patient Disposition: Home w/ Parent or Adult Condition: Improved Instructions: Enteritis (ED) Additional Instructions: As we discussed, your blood work and CT are quite reassuring. This is either a a early partial small-bowel obstruction that seems to be relieving itself which unfortunately is not an uncommon phenomenon. Or this could be a case of gastroenteritis, commonly called the stomach flu. Since there are no signs of clear complete obstruction, hernias, incarcerated bowel or any other condition that would require surgical management, day would be treated the same at this point. We would recommend that you use Zofran, a common anti nausea medicine every 6-8 hours as needed for nausea. This can make it more easy to stay hydrated, even if it does not completely relieve the nausea. It is okay to use Tylenol and/or ibuprofen for mild discomfort, this would not likely mask any alarm symptoms for a more dangerous condition. If the abdominal distension worsens, you have severe persistent vomiting, severe pain or other worrisome features, I would want you to come back to the emergency room right away. Unfortunately there can be a phenomenon of bowel obstructions that seem to relieve and then suddenly worsen. Otherwise start with liquids for a few hours, moving and a soft foods quickly and then advancing to a full diet if this goes well after about 4-6 hours. Activity Level: Activity as Tolerated Discharge Diet: Regular Prescriptions: Discontinued Eliquis 5 mg tablet 5 mg PO BID Qty: 180 0RF No Action fluvoxamine 25 mg tablet 37.5 mg PO ONCE albuterol sulfate 90 mcg/actuation HFA aerosol inhaler inhalation Patient Comments: Inhale 2 Puffs by mouth every 6 hours if needed for Shortness of Breath Advair HFA 230-21 mcg/actuation HFA aerosol inhaler inhalation naproxen sodium [Aleve] 220 mg capsule 440 mg PO QDAY triamcinolone acetonide [Nasacort] 55 mcg aerosol,spray 1 spray intranasal QDAY Rx Instructions: administer into each nostril omeprazole 20 mg capsule,delayed release(DR/EC) 20 mg PO DAILY Follow Up/Referrals: Dominguez Reyes MD [Primary Care Provider] - Stand Alone Forms: MVP Interactive Info Instructions
[2025-01-08 02:39] LABS: Slide Review Reflex No
[2025-01-08] MEDS: KETOROLAC 15 MG/ML inj IVP (02:39)
[2025-01-08] MEDS: ONDANSETRON 2 MG/ML inj 4 MG IVP (02:39)
[2025-01-08 02:45] LABS: Albumin* 4.7 g/dL (3.3-5.0); Chloride* 103 mmol/L (96-114); Sodium* 141 mmol/L (135-149)
[2025-01-08 02:48] LABS: Alanine Aminotransferase* 48 U/L (4-50); Aspartate Amino Transferase* 59 U/L (12-35); Blood Urea Nitrogen* 23 mg/dL (7-30); Creatinine* 0.9 mg/dL (0.5-1.5); Est. Creatinine Clearance* 82.63; Estimated Glomerular Filt Rate 98 ml/min
[2025-01-08 02:49] LABS: Alkaline Phosphatase* 51 U/L (40-150); Anion Gap 8 mEq/L (7-15); Bilirubin Total* 0.4 mg/dL (0.1-1.5); Calcium* 9.1 mg/dL (8.4-10.6); Carbon Dioxide* 30 mmol/L (20-32); Glucose* 101 mg/dL (60-115); Lipase* 92 U/L (23-300); Total Protein* 7.5 g/dL (6.0-8.3)
[2025-01-08 02:52] LABS: C Reactive Protein* < 0.5 mg/dL (0.5-1.0)
[2025-01-08 03:18] LABS: Appearance Urine Clear (Clear); Bilirubin Urine Negative (Negative); Blood Urine Negative (Negative); Color Urine Yellow (Yellow); Glucose Urine Negative (Negative); Ketones Urine Negative (Negative); Leukocyte Esterase Urine Negative (Negative); Nitrite Urine Negative (Negative); Protein Urine Negative (Negative); Urobilinogen Urine 0.2 (0.2-1.0)
== END 2025-01-08 03:44 | disposition home or self-care (01) ==
PROVIDERS: Emergency Provider Family Medicine; PCP Family Medicine
DX: K52.9 Noninfective gastroenteritis and colitis, unspecified (principal)
CPT/HCPCS: 36415; 74177; 80053; 81003; 83605; 83690; 85025; 86140; 96374; 96375; 99284; J1885; J2405; Q9967